=== PATIENT | female | born 1950 | race Caucasian/White ===

== ENCOUNTER → 2021-03-30 | Outpatient (CLI) | payer MEDICARE, OTHER ==
[2021-03-30 13:03] LABS: BASO # 0.1 10^3/uL (0.0-0.2); BASO % 1.5 % (0.0-1.0); EOS # 0.2 10^3/uL (0.0-0.5); EOS % 2.8 % (0.0-3.0); HEMATOCRIT 48.1 % (36.0-47.0); HEMOGLOBIN 15.9 g/dl (12.0-15.5); LYMPH # 1.9 10^3/uL (1.5-5.0); LYMPH % 21.8 % (24.0-44.0); MEAN CORPUSCULAR HGB CONC 33.1 g/dl (32.0-36.5); MEAN CORPUSCULAR VOLUME 93.8 fl (80.0-96.0); MONO # 0.6 10^3/uL (0.0-0.8); MONO % 6.5 % (2.0-8.0); NEUTROPHILS # 5.8 10^3/uL (1.5-8.5); NEUTROPHILS % 66.9 % (36.0-66.0); PLATELET COUNT, AUTOMATED 290 10^3/uL (150-450); RED BLOOD COUNT 5.13 10^6/uL (4.00-5.40); WHITE BLOOD COUNT 8.6 10^3/uL (4.0-10.0)
[2021-03-30 13:14] LABS: INR 0.94
[2021-03-30 13:15] LABS: PARTIAL THROMBOPLASTIN TIME 29.8 SECONDS (25.9-37.0)
[2021-03-30 13:30] LABS: BLOOD UREA NITROGEN 13 MG/DL (7-18); CALCIUM LEVEL 9.6 MG/DL (8.8-10.2); CARBON DIOXIDE LEVEL 29 MEQ/L (21-32); CHLORIDE LEVEL 106 MEQ/L (98-107); CREATININE FOR GFR 0.94 MG/DL (0.55-1.30); GLOMERULAR FILTRATION RATE > 60.0 (>39); GLUCOSE, FASTING 88 MG/DL (70-100); POTASSIUM SERUM 4.6 MEQ/L (3.5-5.1); SODIUM LEVEL 138 MEQ/L (136-145)
== END ==
LOC: M LAB 12:22
PROVIDERS: ATTEND Surgery Vascular Surgery
DX: Z01.818 Encounter for other preprocedural examination (principal)

== ENCOUNTER → 2021-04-03 | Outpatient (CLI) | payer MEDICARE, OTHER ==
[~2021-04-03] MED LIST: ISOVUE-370 76% 100ML VIAL As Ordered ONE
--- NOTE | 2021-04-03 14:11 | REP ---
INDICATION: CLAUDICATION COMPARISON: None. TECHNIQUE: CT angiogram of the abdomen and pelvis and bilateral lower extremities was performed with intravenous administration of 100 cc of Isovue 370, without oral contrast. 3D MIP reconstruction images performed. FINDINGS: Abdominal aorta: No aneurysm or dissection. There is mild diffuse partially calcified plaque of the abdominal aorta. The celiac, superior and inferior mesenteric arteries are patent with no evidence for stenosis. A single renal artery is seen bilaterally. There is mild narrowing at the origin of the renal arteries but there is no evidence of significant stenosis. There is mild diffuse partially calcified plaquing and narrowing of the right common iliac, internal iliac, external iliac and common femoral arteries. There is mild diffuse narrowing of the right superficial femoral and popliteal artery. The right trifurcation arteries are patent. The anterior and posterior tibial arteries traverse into the foot. The peroneal artery is visualized to the distal 3rd of the calf. There is mild diffuse plaquing and narrowing of the left common iliac, external iliac and common femoral arteries. There is moderate stenosis at the origin of the left internal iliac artery. There is mild diffuse narrowing of the left superficial femoral artery. There is moderate focal stenosis of the mid left superficial femoral artery. There is also moderate focal stenosis of the distal left superficial femoral artery in the region of the abductor canal. Left popliteal artery demonstrates no stenosis. The left trifurcation vessels are patent. The anterior and posterior tibial arteries traverse into the foot. The peroneal artery is visualized to the distal 3rd of the calf. Lung bases: There is a 3 mm nodular density in the right middle lobe on image 4. there is a small hiatal hernia. In the superior abdomen there is a midline ventral hernia containing noninflamed fat. Liver: There is calcified granuloma in the right lobe of the liver. Gallbladder: Prior cholecystectomy. Spleen: Normal. Adrenals: Normal. Pancreas: Normal. Kidneys: There is no hydronephrosis. 1 cm nodule upper pole left kidney probably represents a cyst. Small and large bowel: Unremarkable. Free fluid: None. Adenopathy: None. Appendix: Prior appendectomy. Pelvis: No mass. Prior hysterectomy. Osseous structures: There are degenerative changes of the spine without compression deformity.. IMPRESSION: Mild scattered partially calcified plaque of the abdominal aorta and bilateral lower extremity arterial systems. There is moderate focal stenosis of the mid left superficial femoral artery and distal left superficial femoral artery. There is 2 vessel runoff into each foot. Midline ventral hernia containing noninflamed fat at the level of the upper abdomen. <Electronically signed by Kaleb Grace > 04/03/21 [id number]
== END ==
LOC: M RAD 08:50 → EDUNIT# 10:00
PROVIDERS: ATTEND Surgery Vascular Surgery
DX: I70.213 Atherosclerosis of native arteries of extremities with intermittent claudication, bilateral legs (principal)
CPT/HCPCS: 75635; Q9967

== ENCOUNTER → 2021-05-01 | Outpatient (CLI) | payer MEDICARE, OTHER | LOC: M LABSMTC 08:58 | PROVIDERS: ATTEND Surgery Vascular Surgery | DX: Z01.818 Encounter for other preprocedural examination (principal); M79.605 Pain in left leg; M79.604 Pain in right leg ==

== ENCOUNTER → 2021-05-15 | Outpatient (CLI) | payer MEDICARE, OTHER | LOC: M LABSMTC 10:24 | PROVIDERS: ATTEND Surgery Vascular Surgery | DX: Z11.52 Encounter for screening for COVID-19 (principal) ==

== ENCOUNTER → 2021-10-13 | Outpatient (CLI) | payer MEDICARE ==
[2021-10-13 10:06] LABS: INR 0.91; PARTIAL THROMBOPLASTIN TIME 29.9 SECONDS (25.9-37.0); PROTHROMBIN TIME 12.7 SECONDS (12.7-14.5)
[2021-10-13 10:17] LABS: BLOOD UREA NITROGEN 13 MG/DL (7-18); CALCIUM LEVEL 9.5 MG/DL (8.8-10.2); CARBON DIOXIDE LEVEL 25 MEQ/L (21-32); CHLORIDE LEVEL 110 MEQ/L (98-107); CREATININE FOR GFR 0.85 MG/DL (0.55-1.30); GLOMERULAR FILTRATION RATE > 60.0 (>39); GLUCOSE, FASTING 93 MG/DL (70-100); POTASSIUM SERUM 4.2 MEQ/L (3.5-5.1); SODIUM LEVEL 140 MEQ/L (136-145)
[2021-10-13 11:04] LABS: BASO # 0.1 10^3/uL (0.0-0.2); BASO % 1.2 % (0.0-1.0); EOS # 0.1 10^3/uL (0.0-0.5); EOS % 2.1 % (0.0-3.0); HEMATOCRIT 44.5 % (36.0-47.0); LYMPH # 1.3 10^3/uL (1.5-5.0); LYMPH % 19.5 % (24.0-44.0); MEAN CORPUSCULAR HEMOGLOBIN 32.2 pg (27.0-33.0); MEAN CORPUSCULAR HGB CONC 33.7 g/dl (32.0-36.5); MEAN CORPUSCULAR VOLUME 95.5 fl (80.0-96.0); MONO # 0.5 10^3/uL (0.0-0.8); MONO % 7.7 % (2.0-8.0); NEUTROPHILS # 4.5 10^3/uL (1.5-8.5); NEUTROPHILS % 68.3 % (36.0-66.0); PLATELET COUNT, AUTOMATED 255 10^3/uL (150-450); RED BLOOD COUNT 4.66 10^6/uL (4.00-5.40); WHITE BLOOD COUNT 6.6 10^3/uL (4.0-10.0)
[2021-10-13 11:11] LABS: PLATELET ESTIMATE NORMAL (NORMAL)
== END ==
LOC: M LAB 08:56
PROVIDERS: ATTEND Surgery Vascular Surgery
DX: I73.9 Peripheral vascular disease, unspecified (principal)

== ENCOUNTER → 2021-10-17 | Outpatient (CLI) | payer MEDICARE | LOC: M LABSMTC 11:16 | PROVIDERS: ATTEND Surgery Vascular Surgery | DX: Z01.812 Encounter for preprocedural laboratory examination (principal); Z20.822 Contact with and (suspected) exposure to COVID-19; I73.9 Peripheral vascular disease, unspecified ==

== ENCOUNTER 2025-03-25 13:25 | Inpatient (IN) | payer MEDICARE, MEDICAID ==
[~2025-03-25] VITALS: Ht 160 cm; Wt 70.0 kg
[~2025-03-25 13:25] MED LIST changes: +ASPI81TA26 PO; +ATOR80TA59 PO; +CIPR500T39; -ISOVUE-370 76% 100ML VIAL As Ordered ONE; +JARD1TAB PO; +METO1TAB32 PO; +METR-265; +OXYC-517 PO; +PANT20TA6; +PANT20TA6 PO; +SERT25TA21 PO; +SPIR-10
[2025-03-25] MEDS ORDERED: NS (Normal Saline) 0.9% 1,000 ML IV SCH ×2 (14:00→17:20)
[2025-03-25] MEDS: NS (Normal Saline) 0.9% 1,000 ML IV ONE (14:18)
[2025-03-25] MEDS: MORPHINE 4 MG/ML 1 ML VIAL IV PRN (14:18)
[2025-03-25] MEDS ORDERED: ISOVUE-370 76% 100 ML VIAL As Ordered ONE (14:20)
[2025-03-25 14:32] LABS: BASO # 0.1 10^3/uL (0.0-0.2); BASO % 0.8 % (0.0-1.0); EOS # 0.1 10^3/uL (0.0-0.5); EOS % 0.6 % (0.0-3.0); LYMPH # 1.6 10^3/uL (1.5-5.0); LYMPH % 13.2 % (24.0-44.0); MONO # 0.8 10^3/uL (0.0-0.8); MONO % 6.5 % (2.0-8.0); NEUTROPHILS # 9.8 10^3/uL (1.5-8.5); NEUTROPHILS % 78.5 % (36.0-66.0); PLATELET COUNT, AUTOMATED 306 10^3/uL (150-450)
[2025-03-25 14:45] LABS: ALT/SGPT 22 U/L (7.0-40); AST/SGOT 28 U/L (<34); CALCIUM LEVEL 10.3 MG/DL (8.3-10.6); CARBON DIOXIDE LEVEL 24 MMOL/L (20-31); CHLORIDE LEVEL 102 MMOL/L (98-107); CREATININE FOR GFR 0.67 MG/DL (0.55-1.30); GLOMERULAR FILTRATION RATE > 90.0 (>39); POTASSIUM SERUM 4.0 MMOL/L (3.5-5.1); SODIUM LEVEL 141 MMOL/L (136-145)
[2025-03-25] MEDS ORDERED: SPIR-10 PO (14:58)
[2025-03-25] MEDS ORDERED: PANT20TA51 PO (14:58)
[2025-03-25] MEDS ORDERED: HOME MED LIST COMPLETE! XX SCH (15:00)
[2025-03-25] MEDS ORDERED: MORPHINE 4 MG/ML 1 ML VIAL IV PRN ×2 (17:20→17:50)
[2025-03-25] MEDS ORDERED: ONDANSETRON 4MG/2ML VIAL IV PRN ×2 (17:20→17:50)
[2025-03-25] MEDS ORDERED: PANTOPRAZOLE SODIUM 40 MG in D5W 50 ML IV SCH (17:20)
[2025-03-25] MEDS: PANTOPRAZOLE 40MG VIAL IV ONE (18:31)
[2025-03-25 21:01] VITALS: BP 120/61; TEMP 97.7; O2SAT 95
[2025-03-25] MEDS: NS (Normal Saline) 0.9% 1,000 ML IV SCH (21:12)
[2025-03-25 23:49] VITALS: BP 112/54; TEMP 97; O2SAT 96
[2025-03-26] VITALS (11 sets, daily range): BP systolic 111–156; BP diastolic 51–68; TEMP 96.8–98.5; O2SAT 93–98
[2025-03-26 06:09] LABS: PLATELET COUNT, AUTOMATED 193 10^3/uL (150-450)
[2025-03-26 06:31] LABS: ALT/SGPT 15 U/L (7.0-40); AST/SGOT 21 U/L (<34); CALCIUM LEVEL 9.5 MG/DL (8.3-10.6); CARBON DIOXIDE LEVEL 26 MMOL/L (20-31); CHLORIDE LEVEL 110 MMOL/L (98-107); CREATININE FOR GFR 0.64 MG/DL (0.55-1.30); GLOMERULAR FILTRATION RATE > 90.0 (>39); POTASSIUM SERUM 3.6 MMOL/L (3.5-5.1); SODIUM LEVEL 144 MMOL/L (136-145)
[2025-03-26] MEDS: ATORVASTATIN 20 MG TAB PO SCH (08:28)
[2025-03-26] MEDS: METOPROLOL SUCC. 25 MG *XL* TAB PO SCH (09:00)
[2025-03-26] MEDS: SERTRALINE HCL 25 MG TABLET PO SCH (09:00)
[2025-03-26] MEDS: PANTOPRAZOLE 40MG VIAL IV SCH (09:00)
[2025-03-26] MEDS ORDERED: ACETAMINOPHEN 325 MG TAB PO PRN (12:15)
[2025-03-26] MEDS ORDERED: ROCURONIUM BROMIDE 50MG/5ML VIAL As Ordered ONE (15:41)
[2025-03-26] MEDS ORDERED: LIDOCAINE 2% 100 MG/5 ML SDV (FOR ANES.) As Ordered ONE (15:41)
[2025-03-26] MEDS ORDERED: MIDAZOLAM INJ 2 MG/2 ML VIAL As Ordered ONE (15:41)
[2025-03-26] MEDS ORDERED: SUGAMMADEX SODIUM 200 MG/2 ML VIAL As Ordered ONE (15:42)
[2025-03-26] MEDS ORDERED: ONDANSETRON 4MG/2ML VIAL As Ordered ONE (15:42)
[2025-03-26] MEDS ORDERED: ACETAMINOPHEN 1000MG/100ML IV BAG As Ordered ONE (15:42)
[2025-03-26] MEDS ORDERED: KETOROLAC 30 MG/ML 1 ML VIAL As Ordered ONE (15:42)
[2025-03-26] MEDS ORDERED: dexAMETHasone 4 MG/ML 1 ML VIAL As Ordered ONE (15:42)
[2025-03-26] MEDS ORDERED: dexmedeTOMIDine (4 MCG/ML) 200 MCG/50 ML BTL As Ordered ONE (15:42)
[2025-03-26] MEDS ORDERED: PHENYLephrine 500MCG 5ML (100MCG/ML) SYRINGE As Ordered ONE (16:52)
[2025-03-26] MEDS ORDERED: HYDROmorphone HCL 2 MG/ML 1 ML VIAL As Ordered ONE (17:07)
[2025-03-26] MEDS: LIDOCAINE 1% SDV 30 ML VIAL As Ordered ONE (18:18)
[2025-03-26] MEDS ORDERED: ONDANSETRON 4MG/2ML VIAL IV PRN (18:50)
[2025-03-26] MEDS ORDERED: PERCOCET 5MG/325MG TAB PO PRN (18:50)
[2025-03-26] MEDS ORDERED: HYDROMORPHONE HCL 0.5 MG/0.5 ML SYRINGE IV PRN (18:50)
[2025-03-26] MEDS: PERCOCET 5MG/325MG TAB PO PRN (20:21)
[2025-03-26] MEDS: KETOROLAC 30 MG/ML 1 ML VIAL IV SCH (23:51)
[2025-03-27 00:33] VITALS: BP 103/51; TEMP 97.7; O2SAT 95
[2025-03-27 03:44] VITALS: BP 117/56; TEMP 97.8; O2SAT 94
[2025-03-27 07:20] VITALS: BP 119/56; TEMP 97; O2SAT 94
[2025-03-27 07:23] LABS: BASO # 0.0 10^3/uL (0.0-0.2); BASO % 0.2 % (0.0-1.0); EOS # 0.0 10^3/uL (0.0-0.5); EOS % 0.0 % (0.0-3.0); LYMPH # 0.6 10^3/uL (1.5-5.0); LYMPH % 4.3 % (24.0-44.0); MONO # 0.8 10^3/uL (0.0-0.8); MONO % 5.6 % (2.0-8.0); NEUTROPHILS # 12.4 10^3/uL (1.5-8.5); NEUTROPHILS % 89.6 % (36.0-66.0); PLATELET COUNT, AUTOMATED 165 10^3/uL (150-450)
[2025-03-27 08:12] LABS: ALT/SGPT 18 U/L (7.0-40); AST/SGOT 30 U/L (<34); CALCIUM LEVEL 8.1 MG/DL (8.3-10.6); CARBON DIOXIDE LEVEL 23 MMOL/L (20-31); CHLORIDE LEVEL 110 MMOL/L (98-107); CREATININE FOR GFR 0.63 MG/DL (0.55-1.30); GLOMERULAR FILTRATION RATE > 90.0 (>39); MAGNESIUM LEVEL 1.2 MG/DL (1.8-2.4); POTASSIUM SERUM 3.9 MMOL/L (3.5-5.1); SODIUM LEVEL 143 MMOL/L (136-145)
[2025-03-27] MEDS: MAG SULF 1GM/100ML (MAG RUN) 1 GM in IV 1 EA IV SCH (10:27)
[2025-03-27] MEDS: LR 1,000 ML IV SCH (10:39)
[2025-03-27] MEDS ORDERED: ACET-910 PO (10:47)
[2025-03-27] MEDS ORDERED: MM S100C PO (10:53)
[2025-03-27] MEDS ORDERED: OXYC-517 PO (10:53)
[2025-03-27 11:35] VITALS: BP 122/57; TEMP 97.4; O2SAT 94
[2025-03-27 14:20] VITALS: BP 105/52; TEMP 97.4; O2SAT 96
== END 2025-03-27 16:28 | disposition home or self-care (01) | DRG 354 ==
LOC: M ED 13:25 → M ED INP 17:00 → M PCU 20:57
PROVIDERS: ADMIT Internal Medicine; ATTEND Internal Medicine
PROC: 0FB24ZX Excision of Left Lobe Liver, Percutaneous Endoscopic Approach, Diagnostic (ICD-10-PCS; 2025-03-26)
PROC: 0DB38ZX Excision of Lower Esophagus, Via Natural or Artificial Opening Endoscopic, Diagnostic (ICD-10-PCS; 2025-03-26)
PROC: 8E0W4CZ Robotic Assisted Procedure of Trunk Region, Percutaneous Endoscopic Approach (ICD-10-PCS; 2025-03-26)
PROC: 0WQF4ZZ Repair Abdominal Wall, Percutaneous Endoscopic Approach (ICD-10-PCS; principal; 2025-03-26 08:00)
PROC: 0WUF4JZ Supplement Abdominal Wall with Synthetic Substitute, Percutaneous Endoscopic Approach (ICD-10-PCS; 2025-03-26 08:00)
DX: K43.6 Other and unspecified ventral hernia with obstruction, without gangrene (principal); C22.9 Malignant neoplasm of liver, not specified as primary or secondary; C15.9 Malignant neoplasm of esophagus, unspecified; F41.9 Anxiety disorder, unspecified; F32.A Depression, unspecified; I25.2 Old myocardial infarction; G47.00 Insomnia, unspecified; E78.5 Hyperlipidemia, unspecified; K76.89 Other specified diseases of liver; I10 Essential (primary) hypertension; I25.10 Atherosclerotic heart disease of native coronary artery without angina pectoris; I73.9 Peripheral vascular disease, unspecified; Z90.49 Acquired absence of other specified parts of digestive tract; Z91.030 Bee allergy status; Z90.79 Acquired absence of other genital organ(s); Z79.82 Long term (current) use of aspirin; Z95.828 Presence of other vascular implants and grafts; Z79.899 Other long term (current) drug therapy; Z88.0 Allergy status to penicillin; Z88.2 Allergy status to sulfonamides; Z88.8 Allergy status to other drugs, medicaments and biological substances; R13.10 Dysphagia, unspecified

== ENCOUNTER → 2025-04-08 | Outpatient (CLI) | payer MEDICARE, MEDICAID ==
[~2025-04-08] MED LIST changes: +ACET-910 PO; +MM S100C PO; +PANT20TA51 PO; +SPIR-10 PO
== END ==
LOC: M ONCR 15:38
PROVIDERS: ATTEND General Practice
DX: C15.5 Malignant neoplasm of lower third of esophagus (principal); Z80.1 Family history of malignant neoplasm of trachea, bronchus and lung; Z80.3 Family history of malignant neoplasm of breast; Z80.6 Family history of leukemia; Z88.0 Allergy status to penicillin; Z88.1 Allergy status to other antibiotic agents; Z88.2 Allergy status to sulfonamides; Z91.013 Allergy to seafood; Z79.82 Long term (current) use of aspirin; Z79.84 Long term (current) use of oral hypoglycemic drugs; Z79.899 Other long term (current) drug therapy

== ENCOUNTER → 2025-04-18 | Outpatient (CLI) | payer MEDICARE, MEDICAID ==
[~2025-04-18] MED LIST changes: +MIRA3350 PO; +SENN-186 PO
== END ==
LOC: M PAL 08:08
PROVIDERS: ATTEND Physician Assistant
DX: Z51.5 Encounter for palliative care (principal); Z66 Do not resuscitate; C15.9 Malignant neoplasm of esophagus, unspecified; C78.7 Secondary malignant neoplasm of liver and intrahepatic bile duct; Z92.3 Personal history of irradiation; Z92.21 Personal history of antineoplastic chemotherapy; Z79.891 Long term (current) use of opiate analgesic; Z88.0 Allergy status to penicillin; Z88.1 Allergy status to other antibiotic agents; Z91.030 Bee allergy status; Z88.2 Allergy status to sulfonamides; Z88.6 Allergy status to analgesic agent; Z79.82 Long term (current) use of aspirin; Z79.899 Other long term (current) drug therapy; Z79.02 Long term (current) use of antithrombotics/antiplatelets

== ENCOUNTER 2025-04-24 08:35 | Outpatient (RCR) | payer MEDICARE, MEDICAID | END 2025-04-28 | LOC: M ONCR 08:35 | PROVIDERS: ATTEND General Practice | DX: Z51.0 Encounter for antineoplastic radiation therapy (principal); C78.7 Secondary malignant neoplasm of liver and intrahepatic bile duct ==

== ENCOUNTER 2025-04-30 08:40 | Outpatient (RCR) | payer MEDICARE, MEDICAID ==
[2025-05-08] MEDS ORDERED: OLAN1TAB16 PO (09:05)
[2025-05-08] MEDS ORDERED: CLIN150C17 PO (09:05)
[2025-05-08] MEDS ORDERED: ONDA-284 PO (09:05)
[2025-05-29] MEDS ORDERED: DOCU100C16 PO (09:50)
[2025-05-29] MEDS ORDERED: MIRA3350 PO (09:50)
[2025-05-29] MEDS ORDERED: OXYC-517 PO (09:50)
[2025-05-29] MEDS ORDERED: SENN-186 PO (09:50)
[2025-05-29] MEDS ORDERED: OLAN1TAB16 PO (09:50)
[2025-06-03] MEDS ORDERED: OXYC10TA12 PO (08:53)
== END 2025-05-29 ==
LOC: M ONCR 08:40
PROVIDERS: ATTEND General Practice
DX: Z51.0 Encounter for antineoplastic radiation therapy (principal); C78.7 Secondary malignant neoplasm of liver and intrahepatic bile duct

== ENCOUNTER → 2025-05-02 | Outpatient (CLI) | payer MEDICARE, MEDICAID ==
[~2025-05-02] MED LIST changes: +CLIN150C17 PO; +OLAN1TAB16 PO; +ONDA-284 PO; +PROHANCE 279.3MG/ML 15ML VIAL ONE
== END ==
LOC: M PLAIMG 09:36
PROVIDERS: ATTEND Student in an Organized Health Care Education/Training Program
DX: C15.5 Malignant neoplasm of lower third of esophagus (principal); R93.2 Abnormal findings on diagnostic imaging of liver and biliary tract; R90.82 White matter disease, unspecified
CPT/HCPCS: 70553; 71250; A9579

== ENCOUNTER → 2025-05-08 | Outpatient (CLI) | payer MEDICARE, MEDICAID ==
[~2025-05-08] MED LIST changes: -PROHANCE 279.3MG/ML 15ML VIAL ONE
== END ==
LOC: M PAL 08:09
PROVIDERS: ATTEND Physician Assistant
DX: Z51.5 Encounter for palliative care (principal); Z66 Do not resuscitate; C15.9 Malignant neoplasm of esophagus, unspecified; C78.7 Secondary malignant neoplasm of liver and intrahepatic bile duct; Z79.891 Long term (current) use of opiate analgesic; Z88.1 Allergy status to other antibiotic agents; Z88.0 Allergy status to penicillin; Z91.013 Allergy to seafood; Z88.2 Allergy status to sulfonamides

== ENCOUNTER → 2025-05-08 | Outpatient (CLI) | payer MEDICARE, MEDICAID | LOC: M ONCR 08:13 | PROVIDERS: ATTEND General Practice | DX: Z01.89 Encounter for other specified special examinations (principal) ==